=== PATIENT | female | born 1965 | race Caucasian/White ===

== ENCOUNTER 2017-06-03 19:51 | Emergency (ER) | payer BC ==
[2017-06-03] MEDS ORDERED: ONDANSETRON ODT 4 MG TABLET TL STA (21:38)
[2017-06-03] MEDS ORDERED: ONDANSETRON ODT 4 MG TABLET ONE (21:47)
[2017-06-03 22:11] LABS: BILIRUBIN,URINE NEGATIVE (NEGATIVE); PH,URINE 5.5 PH (5.0-7.5)
[2017-06-03 22:12] LABS: UA w/ MICROSCOPIC CHARGE YES
[2017-06-03 22:17] LABS: UR CULTURE IF IND NOT INDICATED; WBC,URINE 0-3 /HPF (0-5)
--- NOTE | 2017-06-03 22:27 | ED Physician Documentation ---
PD HPI NVD - Stated complaint Stated Complaint: NAUESA - Chief complaint Chief Complaint: General - History obtained from History obtained from: Patient, Family - History of Present Illness Timing - onset: Today Timing - details: Gradual onset, Still present Associated symptoms: No: Fever, Abdominal pain, Near syncope / syncope, Loss of appetite Contributing factors: Sick contact Similar symptoms before: Has not had sx before Recently seen: Not recently seen - Additonal information Additional information: Patient is a 52 year old female who is presenting to the emergency department for nausea and vomiting. patient states that she had a steroid injection in her si joint, yesterday. Patient states that she developed some nausea today, and had one dose of vomiting earlier today. patient denies any fever or chills or neurological deficit. Review of Systems Constitutional: denies: Fever, Chills Eyes: denies: Decreased vision, Discharge, Irritation Ears: reports: Reviewed and negative Nose: reports: Reviewed and negative Throat: denies: Oral lesions / sores, Sore throat Cardiac: denies: Chest pain / pressure, Palpitations Respiratory: denies: Cough, Wheezing GI: reports: Nausea, Vomiting. denies: Abdominal Pain, Constipation, Diarrhea : reports: Frequency. denies: Dysuria, Hesitancy, Unable to Void, Incontinent , Hematuria Skin: denies: Rash, Lesions Neurologic: denies: Generalized weakness, Focal weakness, Numbness Immunocompromised: denies: Immunocompromised PD PAST MEDICAL HISTORY - Present Medications Home Medications: Ambulatory Orders Medication Instructions Recorded Confirmed Ondansetron Odt [Zofran] 4 mg TL Q6H PRN #14 tablet 06/03/17 - Allergies Allergies/Adverse Reactions: Allergies Allergy/AdvReac Type Severity Reaction Status Date / Time lamotrigine AdvReac Rash Verified 06/03/17 20:12 prednisone AdvReac Unknown Verified 06/03/17 20:12 - Social History Does the pt smoke?: Yes Smoking Status: Current every day smoker PD ED PE NORMAL - Vitals Vital signs reviewed: Yes - General General: Alert and oriented X 3, No acute distress - HEENT HEENT: Atraumatic, PERRL, Pharynx benign - Neck Neck: Supple, no meningeal sign - Cardiac Cardiac: RRR, No murmur - Respiratory Respiratory: No respiratory distress - Abdomen Abdomen: Soft, Non distended - Derm Derm: Normal color, Warm and dry, No rash, Other (no sign of infection around injection site) - Extremities Extremities: No deformity, No tenderness to palpate, Normal ROM s pain, No edema - Neuro Neuro: Alert and oriented X 3, No motor deficit, No sensory deficit, Normal speech - Psych Psych: Normal mood, Normal affect Results - Vitals Vitals: Vital Signs - 24 hr 06/03/17 06/03/17 20:06 22:50 Temperature 36.8 C 36.2 C L Heart Rate 75 62 Respiratory 17 15 Rate Blood Pressure 139/80 H 99/67 O2 Saturation 99 98 Oxygen O2 Source Room air - Labs Labs: Laboratory Tests 06/03/17 21:53 Urine Color YELLOW Urine Clarity CLEAR Urine pH 5.5 Ur Specific Yale 1.020 Urine Protein NEGATIVE Urine Glucose (UA) NEGATIVE Urine Ketones NEGATIVE Urine Occult Blood SMALL H Urine Nitrite NEGATIVE Urine Bilirubin NEGATIVE Urine Urobilinogen 0.2 (NORMAL) Ur Leukocyte Esterase NEGATIVE Urine RBC 0-5 Urine WBC 0-3 Ur Squamous Epith Cells MOD Squamous H Urine Bacteria Rare Ur Microscopic Review INDICATED Urine Culture Comments NOT INDICATED PD MEDICAL DECISION MAKING - ED course Complexity details: reviewed old records, reviewed results, re-evaluated patient , considered differential, d/w patient, d/w family ED course: Patient was seen and examined at bedside. Patient was well appearing and showed no sign of infection around injection site. Patient's urine was collected and patient was treated with zofran. Patient's diagnostics were within normal limits. Patient had no episodes of emesis and was stable for discharge with outpatient follow up. Departure - Departure Disposition: 01 Home, Self Care Clinical Impression: Nausea & vomiting Condition: Good Instructions: ED Diet Vomiting Diarrhea Follow-Up: primary,care provider [Other] - Within 1 week Prescriptions: Ondansetron Odt [Zofran] 4 mg TL Q6H PRN #14 tablet PRN Reason: Nausea / Vomiting Comments: Your diagnostics today were within normal limits. it is difficult to say if it is secondary to the shot or a virus. You should take the zofran for nausea and stay well hydrated. You should continue to monitor for signs of infection. You should follow up with your pmd if your symptoms persist. You may return to the emergency department at any time for new, worsening or uncontrollable symptoms. Discharge Date/Time: 06/03/17 22:50
[2017-06-03] MEDS ORDERED: ONDANSETRON ODT 4 MG Prepack 2 TL PRN (22:40)
[2017-06-03] MEDS ORDERED: ONDANSETRON ODT 4 MG Prepack 2 TL ONE (22:49)
[2017-06-03 22:53] VITALS: BP 99/67
== END 2017-06-03 22:50 | disposition home or self-care (01) ==
LOC: ED 19:51
DX: R11.2 Nausea with vomiting, unspecified (principal); F17.200 Nicotine dependence, unspecified, uncomplicated
CPT/HCPCS: 81001; 99282; 99283; Q0162; 81003; 87086

== ENCOUNTER 2018-02-06 15:11 | Outpatient (CLI) | payer BC ==
--- NOTE | 2018-02-07 12:22 | MRI Report ---
EXAM: MRI LUMBAR SPINE WITHOUT CONTRAST EXAM DATE: 02/06/2018 03:49 PM. CLINICAL HISTORY: Sciatica, right side. COMPARISON: Plain x-ray 01/20/2018. TECHNIQUE: Multiplanar, multisequence T1-weighted and fluid-sensitive sequences of the lumbar spine f rom T12 to S1 without contrast. Other: None. FINDINGS: Spinal Cord: The conus terminates at L1. The conus medullaris and cauda equina are unremarkable. Alignment: No scoliosis. 9 mm retrolisthesis L5-S1. Bone Marrow: Five hbf-koa-[id number] lumbar vertebral bodies are assumed. Some endplate sclerosis at L5- S1. Disk Levels/Facets: T12-L1: Unremarkable. L1-L2: Unremarkable. L2-L3: Unremarkable. L3-L4: Prominent facets and hypertrophic ligamentum flavum. No central or foraminal stenosis. L4-L5: Disk dehydration, annular tear and broad-based bulge. Mild central stenosis. Prominent facets. Mild bilateral foraminal stenosis. L5-S1: Retrolisthesis, disk uncovering and disk bulge indents the thecal sac and also comes into cont act with the right S1 root in the subarticular zone. Series 701 image 3. Mild to moderate bilateral f oraminal stenosis. Musculature: Mild fatty atrophy of the multifidus muscle is noted. Other: The partially visualized retroperitoneum is unremarkable. IMPRESSION: 1. No scoliosis. 9 mm retrolisthesis of L5-S1. Endplate sclerosis at L5-S1 also noted. 2. L2-L3 is normal. 3. L3-L4 shows prominent facets and hypertrophic ligamentum flavum. No stenosis, however. 4. L4-L5 shows some disk dehydration and mild central stenosis. Mild bilateral foraminal stenosis. 5. L5-S1 shows some retrolisthesis and disk uncovering. This disk bulge comes into contact with the r ight S1 root in the subarticular zone. Left S1 root and the L5 roots appear unremarkable. Mild to mod erate bilateral foraminal stenosis. Comment: The following findings are so common in adults without low back pain that while we report th eir presence, they must be interpreted with caution and in the context of the clinical situation. (Re ange Matthews et al, Spine 2001) Prevalence of findings in patients without low back pain: Disk degeneration (any evidence): 92% Disk desiccation/T2 signal loss: 83% Disk height loss: 56% Disk bulge: 64% Disk protrusion: 32% Annular tear/high intensity zone: 38% [facility] Referring Provider Line: [phone] SITE ID: [id number]
== END 2018-02-06 15:12 | disposition home or self-care (01) ==
LOC: DI 15:11
PROVIDERS: ATTEND Physical Medicine & Rehabilitation
DX: M43.17 Spondylolisthesis, lumbosacral region (principal); M48.061 Spinal stenosis, lumbar region without neurogenic claudication; M48.07 Spinal stenosis, lumbosacral region
CPT/HCPCS: 72148

== ENCOUNTER 2018-11-20 15:11 | Outpatient (CLI) | payer OTHER ==
--- NOTE | 2018-11-21 08:39 | XRAY Report ---
Reason: PAIN IN RIGHT FINGER Procedure Date: 11/20/2018 Accession Number: [id number] / [id number] Procedure: XR - Hand 3 View RT CPT Code: FULL RESULT: EXAM: RIGHT HAND RADIOGRAPHY EXAM DATE: 11/20/2018 03:27 PM. CLINICAL HISTORY: Pain in right thumb. COMPARISON: None. TECHNIQUE: 3 views. FINDINGS: Bones: Normal. No fractures or bone lesions. Joints: Normal. No subluxations. Soft Tissues: Normal. No soft tissue swelling. IMPRESSION: Normal hand radiography. [facility]
== END 2018-11-20 15:12 | disposition home or self-care (01) ==
LOC: DI 15:11
PROVIDERS: ATTEND Internal Medicine
DX: M79.644 Pain in right finger(s) (principal)

== ENCOUNTER 2022-11-24 13:54 | Emergency (ER) | payer OTHER ==
--- OUTSIDE RECORDS SUMMARY | 2022-11-24 14:55 | EXTERNAL MEDICAL SUMMARY RPT | Continuity of Care Document ---
:1965 Author Organization [facility] Address [address] [place] [address] Phone Care Team Providers Name Role Phone Todd Guerrero, Taniya Unavailable Unavailable Allergies No information. Encounters No information. Functional Status No information. Immunizations No information. Medications No information. Problems date description facility 2022-10-29 00:00 No current problems or disability - unk nown All Procedures No information. Results/Labs No information. Social History date description facility 2022-10-29 00:00 Unknown if ever smoked All Vital Signs No information.
[2022-11-24] MEDS ORDERED: IBUPROFEN 600 MG TABLET PO STA (16:27)
--- NOTE | 2022-11-24 16:55 | XRAY Report ---
PROCEDURE: Knee 3 View LT INDICATIONS: trauma, lateral pain TECHNIQUE: 3 views of the left knee(s) were acquired. COMPARISON: None. FINDINGS: Bones: Mild tibial spine osteophytes. No displaced fracture or dislocation. Soft tissues: No significant joint effusion. IMPRESSION: No acute radiographic abnormality. No significant joint effusion. If there is high stefano rn for occult injury, consider repeat radiography or cross-sectional imaging. Reviewed by: Odell Warner MD on 11/24/2022 4:54 PM PDT Approved by: Odell Warner MD on 11/24/2022 4:54 PM PDT Station ID: [id number]
[2022-11-24 17:13] VITALS: BP 125/74
--- NOTE | 2022-11-24 17:14 | ED Physician Documentation ---
PD HPI LOWER EXT INJURY - Stated complaint Stated Complaint: LT KNEE INJ - Chief complaint Chief Complaint: Trauma Ext - History obtained from History obtained from: Patient - Additional information Additional information: The pt comes to the ED for CC of L knee injury today. She was playing pickleball and jumped in the air to try to get the ball, and when she landed, she twisted her knee. She felt a pain in the back of her knee, and it feels a bit unsteady since. Bearing weight hurts, and she has trepidation. The pain feels deep in the back of her knee. No other injuries, and no prior injuries to this knee. PD PAST MEDICAL HISTORY - Past Medical History Past Medical History: Yes Cardiovascular: None Respiratory: None Neuro: None Endocrine/Autoimmune: None GI: None SENIOR CUSTOMER SERVICE REPRESENTATIVE: None : None HEENT: None Psych: Depression Musculoskeletal: None Derm: None - Present Medications Home Medications: Ambulatory Orders Medication Instructions Recorded Confirmed cloNIDine [Catapres] 0.1 mg PO DAILY 11/24/22 11/24/22 - Allergies Allergies/Adverse Reactions: Allergies Allergy/AdvReac Type Severity Reaction Status Date / Time lamotrigine AdvReac Rash Verified 06/03/17 20:12 prednisone AdvReac Unknown Verified 06/03/17 20:12 - Social History Does the pt smoke?: Yes Smoking Status: Current every day smoker Does the pt drink ETOH?: No Does the pt have substance abuse?: No - Immunizations Immunizations are current?: Yes - POLST Patient has POLST: No PD ED PE NORMAL - Vitals Vital signs reviewed: Yes - General General: Alert and oriented X 3, No acute distress, Well developed/nourished - HEENT HEENT: Atraumatic, PERRL, EOMI, Moist mucous membranes - Neck Neck: Supple, no meningeal sign - Cardiac Cardiac: Strong equal pulses - Respiratory Respiratory: No respiratory distress - Derm Derm: Normal color, Warm and dry, No rash - Extremities Extremities: No deformity, Normal ROM s pain, No edema, Other (Pt has some pain with stability testing, mostly on posterolateral aspect, but no instability. Full passive ROM of knee to both flexion and extension. ) - Neuro Neuro: Alert and oriented X 3, No motor deficit, No sensory deficit - Psych Psych: Normal mood, Normal affect Results - Vitals Vitals: Oxygen O2 Source Room air PD Medical Decision Making - ED course Complexity details: reviewed results, re-evaluated patient, considered differential, d/w patient, d/w family ED course: The pt's XR series was negative. I d/w pt and that she has undoubtedly sprained her knee, possibly ACL. We have discussed that most sprains heal on their own, given time, but that if she does not notice any improvement in the next few weeks, she will need to discuss MRI with her doctor. The pt has been given an articulating knee brace and crutches, and we have discussed the usual indications for return. Departure - Departure Disposition: Home, Self Care Clinical Impression: Left knee sprain Qualifiers: Encounter type: initial encounter Involved ligament of knee: unspecified ligament Qualified Code(s): S83.92XA - Sprain of unspecified site of left knee, initial encounter Condition: Stable Instructions: ED Sprain Knee Comments: Your x-ray looks great. There is no evidence of any fracture or malalignment. You have some mild swelling of your knee but no evidence of a serious injury or knee instability. You have most likely sprained your knee, which means that there has been some degree of injury to 1 or more of the soft tissue structures of the knee. There is no indication for emergent MRI, though this would be the test of choice if you wish to follow-up for further evaluation. You may take ibuprofen and Tylenol as needed for the discomfort. You may wear the articulating knee brace as needed and bear weight as tolerated. Please use the crutches if you need to get around without waiting your left leg too much. Please call your primary doctor's office to set up a follow-up appointment in case you get to the 2 or 3-week terrance and feel that you really have not improved much. For now, avoid walking on any uneven ground such as trails or [place]. Please do not do any high impact or strenuous activities with your left leg until your knee is feeling better. Discharge Date/Time: 11/24/22 17:43
== END 2022-11-24 17:43 | disposition home or self-care (01) ==
LOC: ED 13:54
DX: S83.92XA Sprain of unspecified site of left knee, initial encounter (principal); X50.1XXA Overexertion from prolonged static or awkward postures, initial encounter; Y93.69 Activity, other involving other sports and athletics played as a team or group; F17.200 Nicotine dependence, unspecified, uncomplicated
CPT/HCPCS: 99283

== ENCOUNTER 2023-03-09 09:02 | Outpatient (CLI) | payer OTHER | END 2023-03-09 09:03 | disposition home or self-care (01) | LOC: DI 09:02 | PROVIDERS: ATTEND Internal Medicine | DX: I34.1 Nonrheumatic mitral (valve) prolapse (principal); I34.0 Nonrheumatic mitral (valve) insufficiency | CPT/HCPCS: 93306 ==

== ENCOUNTER 2023-12-23 07:22 | Outpatient (CLI) | payer OTHER ==
[2023-12-23 14:55] LABS: BASOPHILS % (AUTO) 0.5 %; EOSINOPHILS # (AUTO) 0.1 10^3/uL (0.0-0.7); EOSINOPHILS % (AUTO) 1.5 %; HGB - HEMOGLOBIN 12.5 g/dL (12.0-16.0); LYMPHOCYTES % (AUTO) 24.6 %; MEAN CORPUSCULAR HEMOGLOBIN 28.1 pg (27.0-31.0); MEAN CORPUSCULAR HGB CONC 31.3 g/dL (32.0-36.0); MEAN CORPUSCULAR VOLUME 89.9 fL (81.0-99.0); MEAN PLATELET VOLUME 10.8 fL (7.9-10.8); MONOCYTES # (AUTO) 0.4 10^3/uL (0.0-1.0); MONOCYTES % (AUTO) 9.4 %; NEUTROPHILS # (AUTO) 2.5 10^3/uL (1.5-6.6); NEUTROPHILS % (AUTO) 63.7 %; PLT - PLATELET COUNT 204 10^3/uL (130-450); RED BLOOD COUNT 4.45 10^6/uL (4.20-5.40); RED CELL DISTRIBUTION WIDTH 12.6 % (12.0-15.0)
[2023-12-23 15:30] LABS: ALBUMIN 4.3 g/dL (3.2-5.5); ALBUMIN/GLOBULIN RATIO 1.8 (1.0-2.2); ALKALINE PHOSPHATASE 81 IU/L (42-121); ALT ALANINE AMINOTRANSFERASE 17 IU/L (10-60); AST ASPARTATE AMINOTRANSFERASE 15 IU/L (10-42); BILIRUBIN,TOTAL 0.4 mg/dL (0.2-1.0); BUN - BLOOD UREA NITROGEN 17 mg/dL (6-20); CALCIUM 9.9 mg/dL (8.5-10.3); CARBON DIOXIDE - CO2 30 mmol/L (21-32); CHLORIDE 107 mmol/L (101-111); CHOL/HDL RATIO 2.7 (<4.4); CHOLESTEROL 266 mg/dL; CREATININE 0.8 mg/dL (0.6-1.3); GFR - MDRD 74 (>89); GLUCOSE 101 mg/dL (74-104); HDL CHOLESTEROL 97 mg/dL; LDL CHOLESTEROL,CALCULATED 157 mg/dL; LDL/HDL RATIO 1.6 (<4.4); POTASSIUM 4.5 mmol/L (3.5-4.5); SODIUM 141 mmol/L (135-145); TOTAL PROTEIN 6.7 g/dL (6.4-8.9); TRIGLYCERIDES 61 mg/dL (48-352); VLDL CHOLESTEROL 12 mg/dL
[2023-12-23 15:35] LABS: THYROID STIMULATING HORMONE 1.73 uIU/mL (0.34-5.60)
[2023-12-23 21:12] LABS: ESTIMATED AVERAGE GLUCOSE 114 mg/dL (70-100); HEMOGLOBIN A1c% 5.6 % (4.27-6.07)
== END 2023-12-23 07:23 | disposition home or self-care (01) ==
LOC: LAB.S 07:22
PROVIDERS: ATTEND Internal Medicine
DX: F51.04 Psychophysiologic insomnia (principal); I34.1 Nonrheumatic mitral (valve) prolapse; Z13.9 Encounter for screening, unspecified; R42 Dizziness and giddiness
CPT/HCPCS: 36415; 80053; 80061; 83036; 83721; 84443; 85025